=== PATIENT | female | born 1965 | race African-American/Black ===

== ENCOUNTER 2024-06-04 15:32 | Emergency (ER) | payer MEDICAID ==
[~2024-06-04] VITALS: Ht 152.4 cm; Wt 67.0 kg
[2024-06-04 15:41] VITALS: BP 118/79; PULSE 89; RESP 16; TEMP 98.2; O2SAT 99
[2024-06-04] MEDS ORDERED: QUET300T2 MT (16:30)
== END 2024-06-04 16:41 | disposition home or self-care (01) ==
LOC: ER 15:32
DX: R68.89 Other general symptoms and signs (principal); F41.9 Anxiety disorder, unspecified; Z76.0 Encounter for issue of repeat prescription
CPT/HCPCS: 99283

== ENCOUNTER 2024-09-06 20:38 | Emergency (ER) | payer MEDICAID ==
[~2024-09-06] VITALS: Ht 152.4 cm; Wt 79.0 kg
[~2024-09-06 20:38] MED LIST: QUET300T2 MT
[2024-09-06 20:40] VITALS: O2SAT 99
[2024-09-06 21:05] VITALS: BP 146/84; PULSE 96; RESP 18; TEMP 36.8; O2SAT 98
[2024-09-06] MEDS ORDERED: QUET200T MT (23:10)
== END 2024-09-06 23:14 | disposition home or self-care (01) ==
LOC: ER 20:38
DX: Z76.0 Encounter for issue of repeat prescription (principal); Z79.899 Other long term (current) drug therapy
CPT/HCPCS: 99281

== ENCOUNTER 2025-01-03 19:10 | Emergency (ER) | payer MEDICAID ==
[~2025-01-03] VITALS: Ht 157.5 cm; Wt 67.0 kg
[~2025-01-03 19:10] MED LIST changes: +QUET200T MT
[2025-01-03 19:13] VITALS: PULSE 101; RESP 18; O2SAT 91
== END 2025-01-03 19:52 | disposition left against medical advice (07) ==
LOC: ER 19:10
DX: I10 Essential (primary) hypertension (principal); Z53.21 Procedure and treatment not carried out due to patient leaving prior to being seen by health care provider

== ENCOUNTER 2025-01-16 13:27 | Emergency (ER) | payer MEDICAID ==
[~2025-01-16] VITALS: Ht 165.1 cm; Wt 72.0 kg
[2025-01-16 13:41] VITALS: O2SAT 100
[2025-01-16] MEDS ORDERED: QUET200T MT (15:41)
[2025-01-16] MEDS ORDERED: BENZ200C52 MT (15:41)
[2025-01-16 15:53] VITALS: BP 129/89; PULSE 88; RESP 15; TEMP 36.7; O2SAT 99
== END 2025-01-16 15:55 | disposition home or self-care (01) ==
LOC: ER 13:27
DX: R05.9 Cough, unspecified (principal); Z76.0 Encounter for issue of repeat prescription; Z79.899 Other long term (current) drug therapy
CPT/HCPCS: 71045; 99283